=== PATIENT | male | born 1955 | race Caucasian/White ===

== ENCOUNTER 2017-06-24 17:06 | Inpatient (IN) | payer BC ==
[2017-06-24 17:29] LABS: ADD MAN DIFF? NO
[2017-06-24] MEDS: SOD CHLORIDE 0.9% 2,000 ML IV (17:30)
[2017-06-24 17:36] LABS: WHITE BLOOD COUNT 6.8 10^3/ul (4.8-10.8)
[2017-06-24 17:36] LABS: BASOPHIL # 0.1 10^3/ul (0.0-0.1); BASOPHILS % 0.7 % (0.0-2.0); HEMATOCRIT 47.6 % (42.0-52.0); HEMOGLOBIN 15.7 g/dl (14.0-18.0); LYMPHOCYTES # 1.3 10^3/ul (0.8-2.9); LYMPHOCYTES % 18.5 % (15.0-51.0); MEAN CORPUSCULAR VOLUME 93.9 fl (82.0-101.0); MONOCYTE # 0.5 10^3/ul (0.3-0.9); MONOCYTES % 7.1 % (0.0-11.0); NEUTROPHILS % 73.3 % (39.0-77.0); PLATELET COUNT 268 10^3/UL (140-415); RED BLOOD COUNT 5.07 10^6/ul (4.70-6.10)
[2017-06-24 17:40] LABS: ADD UMIC NO; UR ASCORBIC ACID NEGATIVE (NEGATIVE); UR BILIRUBIN (Dip) NEGATIVE (NEGATIVE); UR BLOOD (Dip) NEGATIVE (NEGATIVE); UR CLARITY CLEAR (CLEAR); UR COLOR STRAW (YELLOW); UR GLUCOSE (Dip) 3+ mg/dL (NEGATIVE); UR KETONES (Dip) NEGATIVE (NEGATIVE); UR LEUKOCYTE ESTERASE (Dip) NEGATIVE Leu/ul (NEGATIVE); UR NITRITE (Dip) NEGATIVE (NEGATIVE); UR SPECIFIC GRAVITY (Dip) 1.026 (1.003-1.030); UR TOTAL PROTEIN (Dip) NEGATIVE (NEGATIVE); UR UROBILINOGEN (Dip) NEGATIVE (NEGATIVE)
[2017-06-24] MEDS: ONDANSETRON 4 MG INJ IV (17:54)
[2017-06-24 17:59] LABS: ANION GAP 24 (8-16); BLOOD UREA NITROGEN 18 mg/dl (7-20); CALCIUM 10.1 mg/dl (8.4-10.2); CARBON DIOXIDE 24 mmol/L (21-31); CHLORIDE 95 mmol/L (97-110); CREATININE 1.12 mg/dl (0.61-1.24); POTASSIUM 4.6 mmol/L (3.5-5.1); SODIUM 138 mmol/L (135-144)
[2017-06-24 18:09] LABS: LACTIC ACID 5.5 mmol/L (0.5-2.0)
[2017-06-24 18:09] LABS: GLUCOSE 1208 mg/dl (70-220)
[2017-06-24 18:17] LABS: MODE ROOM AIR; MetHgb Venous 0.2 %; Sample Type Blood venous; Site OTHER; Venous COHb 0.3 %; Venous Fraction OxyHgb 55.7 %; Venous Total Hemglobin 16.1 g/dl
[2017-06-24 18:46] LABS: ANION GAP 22 (8-16); BLOOD UREA NITROGEN 18 mg/dl (7-20); CALCIUM 9.5 mg/dl (8.4-10.2); CARBON DIOXIDE 23 mmol/L (21-31); CHLORIDE 99 mmol/L (97-110); CREATININE 1.01 mg/dl (0.61-1.24); POTASSIUM 4.7 mmol/L (3.5-5.1); SODIUM 139 mmol/L (135-144)
[2017-06-24 18:46] LABS: LACTIC ACID 4.9 mmol/L (0.5-2.0)
[2017-06-24 18:56] LABS: GLUCOSE 1051 mg/dl (70-220)
[2017-06-24 19:11] LABS: OSMOLALITY 353 mOsm/kg (280-295)
[2017-06-24] MEDS: hydrALAzine 20 MG INJ IV (19:45)
[2017-06-24] MEDS: CEFEPIME 2GM/50 ML (PMX) 50 ML IVPB (19:46)
[2017-06-24] MEDS: LACTATED RINGER'S 1,000 ML IV ×2 (19:48)
[2017-06-24] MEDS: INSULIN HUMAN REGULAR 100 UNIT in SOD CHLORIDE 0.9% 99 ML IV (19:48)
[2017-06-24] MEDS: SOD CHLORIDE 0.9% 1,000 ML IV (19:50)
[2017-06-24 22:37] LABS: ANION GAP 14 (8-16); BLOOD UREA NITROGEN 14 mg/dl (7-20); CALCIUM 8.8 mg/dl (8.4-10.2); CARBON DIOXIDE 21 mmol/L (21-31); CHLORIDE 108 mmol/L (97-110); CREATININE 0.72 mg/dl (0.61-1.24); GLUCOSE 363 mg/dl (70-220); POTASSIUM 3.4 mmol/L (3.5-5.1); SODIUM 140 mmol/L (135-144)
[2017-06-24 23:06] LABS: LACTIC ACID 3.2 mmol/L (0.5-2.0)
[2017-06-25 01:10] LABS: ANION GAP 9 (8-16); BLOOD UREA NITROGEN 11 mg/dl (7-20); CARBON DIOXIDE 25 mmol/L (21-31); CHLORIDE 108 mmol/L (97-110); CREATININE 0.66 mg/dl (0.61-1.24); GLUCOSE 234 mg/dl (70-220); SODIUM 139 mmol/L (135-144)
[2017-06-25 01:57] LABS: ANION GAP 10 (8-16); BLOOD UREA NITROGEN 10 mg/dl (7-20); CALCIUM 8.1 mg/dl (8.4-10.2); CARBON DIOXIDE 25 mmol/L (21-31); CHLORIDE 109 mmol/L (97-110); CREATININE 0.66 mg/dl (0.61-1.24); GLUCOSE 197 mg/dl (70-220); POTASSIUM 3.2 mmol/L (3.5-5.1); SODIUM 141 mmol/L (135-144)
[2017-06-25] MEDS: SOD CHLORIDE 0.9% 1,000 ML IV ×2 (05:36→11:17)
[2017-06-25 05:49] LABS: ANION GAP 14 (8-16); BLOOD UREA NITROGEN 8 mg/dl (7-20); CARBON DIOXIDE 23 mmol/L (21-31); CHLORIDE 107 mmol/L (97-110); CREATININE 0.65 mg/dl (0.61-1.24); GLUCOSE 279 mg/dl (70-220); POTASSIUM 3.2 mmol/L (3.5-5.1); SODIUM 141 mmol/L (135-144)
[2017-06-25] MEDS ORDERED: DEXTROSE 50% 50 ML SYRINGE IV ×4 (07:00→17:30)
[2017-06-25 07:26] LABS: HEMOGLOBIN A1C 9.6 % (0-5.9)
[2017-06-25 07:26] LABS: ANION GAP 12 (8-16); BLOOD UREA NITROGEN 6 mg/dl (7-20); CARBON DIOXIDE 23 mmol/L (21-31); CHLORIDE 108 mmol/L (97-110); GLUCOSE 227 mg/dl (70-220); POTASSIUM 3.3 mmol/L (3.5-5.1); SODIUM 140 mmol/L (135-144)
[2017-06-25 07:29] LABS: CHOL/HDL RATIO 9.1 RATIO; HDL CHOLESTEROL 23 mg/dl (30-78); LDL CHOLESTEROL,CALCULATED 98 mg/dl; TRIGLYCERIDES 445 mg/dl (0-149)
[2017-06-25 07:29] LABS: CHOLESTEROL 210 mg/dl (100-200)
[2017-06-25] MEDS: ACCU-CHEK XX ×6 (07:54→12:38)
[2017-06-25] MEDS: INSULIN GLARGINE [LANtus] 3 ML PEN SC ×2 (08:40→11:17)
[2017-06-25] MEDS: INSULIN HUMAN REGULAR 100 UNIT in SOD CHLORIDE 0.9% 99 ML IV ×2 (09:18→11:17)
[2017-06-25 10:31] LABS: ANION GAP 13 (8-16); BLOOD UREA NITROGEN 6 mg/dl (7-20); CALCIUM 7.7 mg/dl (8.4-10.2); CARBON DIOXIDE 24 mmol/L (21-31); CHLORIDE 105 mmol/L (97-110); CREATININE 0.58 mg/dl (0.61-1.24); GLUCOSE 262 mg/dl (70-220); POTASSIUM 3.5 mmol/L (3.5-5.1); SODIUM 138 mmol/L (135-144)
[2017-06-25] MEDS: INSULIN ASPART [NOVOLOG] 3 ML PEN SC ×4 (12:37→22:28)
[2017-06-25 14:57] LABS: ANION GAP 9 (8-16); BLOOD UREA NITROGEN 6 mg/dl (7-20); CALCIUM 8.2 mg/dl (8.4-10.2); CARBON DIOXIDE 27 mmol/L (21-31); CHLORIDE 104 mmol/L (97-110); CREATININE 0.64 mg/dl (0.61-1.24); GLUCOSE 242 mg/dl (70-220); POTASSIUM 3.6 mmol/L (3.5-5.1); SODIUM 136 mmol/L (135-144)
[2017-06-25 17:19] LABS: ANION GAP 9 (8-16); BLOOD UREA NITROGEN 7 mg/dl (7-20); CALCIUM 8.1 mg/dl (8.4-10.2); CARBON DIOXIDE 25 mmol/L (21-31); CHLORIDE 103 mmol/L (97-110); CREATININE 0.61 mg/dl (0.61-1.24); GLUCOSE 233 mg/dl (70-220); POTASSIUM 3.3 mmol/L (3.5-5.1); SODIUM 134 mmol/L (135-144)
[2017-06-25] MEDS ORDERED: GLUCOSE GEL 15 GRAM TUBE PO ×2 (17:30)
[2017-06-25] MEDS ORDERED: GLUCOSE GEL 15 GRAM TUBE BUCCAL (17:30)
[2017-06-25] MEDS ORDERED: GLUCAGON 1 MG INJ IM (17:30)
[2017-06-25 18:49] LABS: ANION GAP 14 (8-16); BLOOD UREA NITROGEN 7 mg/dl (7-20); CARBON DIOXIDE 23 mmol/L (21-31); CHLORIDE 102 mmol/L (97-110); CREATININE 0.62 mg/dl (0.61-1.24); GLUCOSE 235 mg/dl (70-220); POTASSIUM 3.5 mmol/L (3.5-5.1); SODIUM 135 mmol/L (135-144)
[2017-06-26] MEDS: INSULIN ASPART [NOVOLOG] 3 ML PEN SC ×8 (08:41→21:32)
[2017-06-26] MEDS: INSULIN GLARGINE [LANtus] 3 ML PEN SC (08:43)
[2017-06-27] MEDS: INSULIN GLARGINE [LANtus] 3 ML PEN SC (08:35)
[2017-06-27] MEDS: INSULIN ASPART [NOVOLOG] 3 ML PEN SC ×4 (08:36→20:36)
[2017-06-27] MEDS: GLIMEPIRIDE 2 MG TAB PO ×2 (10:33→17:33)
[2017-06-27] MEDS: metFORMIN 500 MG TAB PO ×2 (10:34→17:34)
[2017-06-28] MEDS: INSULIN ASPART [NOVOLOG] 3 ML PEN SC ×5 (03:31→21:00)
[2017-06-28] MEDS: metFORMIN 500 MG TAB PO ×2 (08:40→17:12)
[2017-06-28] MEDS: GLIMEPIRIDE 2 MG TAB PO ×2 (08:40→17:11)
[2017-06-28] MEDS: INSULIN GLARGINE [LANtus] 3 ML PEN SC (08:44)
[2017-06-29] MEDS: metFORMIN 500 MG TAB PO (08:12)
[2017-06-29] MEDS: GLIMEPIRIDE 2 MG TAB PO (08:12)
[2017-06-29] MEDS: INSULIN ASPART [NOVOLOG] 3 ML PEN SC ×2 (08:14→12:00)
[2017-06-29] MEDS: INSULIN GLARGINE [LANtus] 3 ML PEN SC (08:40)
== END 2017-06-29 15:21 | disposition home or self-care (01) | DRG 639 ==
LOC: ICU 19:23 → E/R 17:06 → PP2 06-25 21:10
DX: E11.00 Type 2 diabetes mellitus with hyperosmolarity without nonketotic hyperglycemic-hyperosmolar coma (NKHHC) (principal); I16.0 Hypertensive urgency; E66.9 Obesity, unspecified; E11.65 Type 2 diabetes mellitus with hyperglycemia; E78.5 Hyperlipidemia, unspecified; I10 Essential (primary) hypertension; Z68.32 Body mass index [BMI] 32.0-32.9, adult; Z79.84 Long term (current) use of oral hypoglycemic drugs
CPT/HCPCS: 36415; 71045; 80048; 80061; 81003; 82803; 82962; 83036; 83605; 83930; 85025; 87040; 87081; 87086; 93005; 96374; 96375; 99291-25

== ENCOUNTER 2017-07-06 14:08 | Outpatient (CLI) | payer BC | END 2017-07-06 15:49 | disposition home or self-care (01) | LOC: DCC 14:08 | DX: E11.8 Type 2 diabetes mellitus with unspecified complications (principal); I10 Essential (primary) hypertension; E78.5 Hyperlipidemia, unspecified | CPT/HCPCS: 82962 ==

== ENCOUNTER 2017-07-20 15:56 | Outpatient (CLI) | payer BC | END 2017-07-20 17:09 | disposition home or self-care (01) | LOC: DCC 15:56 | DX: E11.9 Type 2 diabetes mellitus without complications (principal); I10 Essential (primary) hypertension; E78.5 Hyperlipidemia, unspecified | CPT/HCPCS: 82962 ==